=== PATIENT | male | born 1955 | race Caucasian/White ===

== ENCOUNTER 2016-09-11 10:21 | Outpatient (CLI) | payer OTHER ==
--- NOTE | 2016-09-11 13:14 | Ultrasound Report ---
RIGHT LOWER EXTREMITY VENOUS ULTRASOUND: 09/11/2016 CLINICAL HISTORY: Persistent aching pain and burning in the right calf and thigh. TECHNIQUE: Real-time sonographic vascular imaging was performed by the undercollar maker through the right lower extremity utilizing both color-flow and Doppler spectral analysis. Multiple sales solutions representative stat ic images were saved for review. FINDINGS: Color Doppler ultrasound of the right lower extremity veins was done using a [employer] color Doppler scanning system. The deep veins of the right lower extremity show normal compressibility and phasic color flow. These include the common femoral vein, superficial femoral vein, profunda femoral vein, popliteal vein and calf veins. Also the right greater saphenous vein showed normal compressibility and phasic color flow . The examination is negative for deep vein thrombosis. IMPRESSION: NEGATIVE RIGHT LOWER EXTREMITY VENOUS ULTRASOUND. JOB #: [id number] EXT JOB #:[id number]
== END 2016-09-11 10:22 | disposition home or self-care (01) ==
LOC: DI 10:21
PROVIDERS: ATTEND Family Medicine
DX: M79.651 Pain in right thigh (principal); M79.671 Pain in right foot; M79.661 Pain in right lower leg

== ENCOUNTER 2022-01-05 12:25 | Outpatient (CLI) | payer OTHER ==
--- NOTE | 2022-01-05 16:32 | XRAY Report ---
PROCEDURE: Knee 3 View LT INDICATIONS: L KNEE PX TECHNIQUE: 3 views of the left knee were acquired. COMPARISON: None. FINDINGS: Bones: No acute fractures or dislocations. No suspicious bony lesions. Moderate to severe joint sp sammi narrowing is seen in the medial femorotibial compartment with subchondral sclerosis and marginal osteophyte formation. Moderate osteoarthrosis is seen in the lateral and anterior compartments. An en thesophyte is seen at the quadriceps tendon insertion. Soft tissues: No joint effusion. No suspicious soft tissue calcifications. 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 Reviewed by: Sebastian Cobos MD on 01/05/2022 4:30 PM PDT Approved by: Sebastian Cobos MD on 01/05/2022 4:30 PM PDT Station ID: [id number]
== END 2022-01-05 12:26 | disposition home or self-care (01) ==
LOC: DI.N 12:25
PROVIDERS: ATTEND Family Medicine
DX: M17.12 Unilateral primary osteoarthritis, left knee (principal); S86.912D Strain of unspecified muscle(s) and tendon(s) at lower leg level, left leg, subsequent encounter